=== PATIENT | male | born 1965 | race Caucasian/White ===

== ENCOUNTER 2022-06-18 02:43 | Observation (INO) | payer OTHER ==
[~2022-06-18] VITALS: Ht 190.5 cm; Wt 97.7 kg
[2022-06-18 04:10] LABS: BASO % 0.3 % (0.0-1.0); EOS % 0.1 % (0.0-3.0); HEMATOCRIT 36.9 % (42.0-52.0); HEMOGLOBIN 12.1 g/dl (13.5-17.5); LYMPH # 0.5 10^3/uL (1.5-5.0); LYMPH % 3.1 % (24.0-44.0); MEAN CORPUSCULAR HEMOGLOBIN 30.7 pg (27.0-33.0); MEAN CORPUSCULAR HGB CONC 32.8 g/dl (32.0-36.5); MEAN CORPUSCULAR VOLUME 93.7 fl (80.0-96.0); MONO # 1.5 10^3/uL (0.0-0.8); MONO % 9.5 % (2.0-8.0); NEUTROPHILS # 13.8 10^3/uL (1.5-8.5); NEUTROPHILS % 86.4 % (36.0-66.0); PLATELET COUNT, AUTOMATED 279 10^3/uL (150-450); RED BLOOD COUNT 3.94 10^6/uL (4.30-6.10); WHITE BLOOD COUNT 15.9 10^3/uL (4.0-10.0)
[2022-06-18 04:17] LABS: BLOOD UREA NITROGEN 24 MG/DL (9-23); CALCIUM LEVEL 7.9 MG/DL (8.5-10.1); CARBON DIOXIDE LEVEL 22 MMOL/L (20-31); CHLORIDE LEVEL 107 MMOL/L (98-107); CREATININE FOR GFR 1.05 MG/DL (0.70-1.30); GLOMERULAR FILTRATION RATE > 60.0 (>56); GLUCOSE, FASTING 114 MG/DL (60-100); POTASSIUM SERUM 4.4 MMOL/L (3.5-5.1); SODIUM LEVEL 141 MMOL/L (136-145)
[2022-06-18 04:19] LABS: CK-MB VALUE MASS 1.2 NG/ML (<3.6)
[2022-06-18 04:20] LABS: INR 1.07; PROTHROMBIN TIME 14.1 SECONDS (12.5-14.5)
[2022-06-18 04:21] LABS: PARTIAL THROMBOPLASTIN TIME 24.1 SECONDS (24.8-34.2)
[2022-06-18 04:22] LABS: CPK CREATINE PHOSPHOKINASE 351 U/L (46-171); MB/CK RELATIVE INDEX 0.34 (< OR =4)
[2022-06-18] MEDS ORDERED: ISOVUE-370 76% 100ML VIAL As Ordered ONE (05:11)
[2022-06-18] MEDS ORDERED: BOOSTRIX/ADACEL VACCINE (DIPHTH/PERTUSS/ACELL/TETANUS) 0.5ML SYR IM ONE (06:40)
[2022-06-18] MEDS ORDERED: UNRESOLVED CLARIFICATION ENTRY XX STA (06:42)
[2022-06-18 07:16] LABS: CK-MB VALUE MASS 1.2 NG/ML (<3.6)
[2022-06-18 07:20] LABS: THYROID STIMULATING HORMONE 0.301 uIU/ML (0.55-4.78)
[2022-06-18 07:21] LABS: FREE T4 1.25 NG/DL (0.89-1.76)
[2022-06-18 07:24] LABS: MB/CK RELATIVE INDEX 0.26 (< OR =4)
[2022-06-18] MEDS ORDERED: PERI0.126 PO (07:35)
[2022-06-18] MEDS ORDERED: METO1TAB7 PO (07:35)
[2022-06-18] MEDS ORDERED: ASPI81CH33 PO (07:35)
[2022-06-18] MEDS ORDERED: PRAV40TA2 PO (07:35)
[2022-06-18] MEDS ORDERED: OMEP10CASR PO (07:35)
[2022-06-18] MEDS ORDERED: IBUP-1022 PO (07:35)
[2022-06-18] MEDS ORDERED: DOXY100C3 PO (07:35)
[2022-06-18] MEDS ORDERED: FLOM0.4C39 PO (07:35)
[2022-06-18 08:19] LABS: CK-MB VALUE MASS 3.6 NG/ML (<3.6)
[2022-06-18 08:21] LABS: MB/CK RELATIVE INDEX 0.53 (< OR =4)
[2022-06-18] MEDS ORDERED: MORPHINE 4 MG/ML 1ML VIAL IV ONE (09:10)
[2022-06-18] MEDS ORDERED: ASPI81TA26 PO (10:31)
[2022-06-18] MEDS ORDERED: OMEP-341 PO (10:31)
[2022-06-18] MEDS ORDERED: HOME MED LIST COMPLETE! XX SCH (10:35)
[2022-06-18] MEDS ORDERED: KETOROLAC 30 MG/ML 1ML VIAL IV ONE (10:50)
[2022-06-18] MEDS ORDERED: PERCOCET 5MG/325MG TAB PO PRN (10:50)
[2022-06-18] MEDS ORDERED: ALBUTEROL SULFATE 2.5MG/0.5ML INH NEB SOLN NEB PRN (11:25)
[2022-06-18] MEDS: IPRATROPIUM 0.5MG/ALBUTEROL 2.5MG INH SOL UD 3ML (DUONEB) NEB SCH ×3 (12:00→20:03)
[2022-06-18] MEDS: ENOXAPARIN 40MG/0.4ML SYRINGE (J1650 PER 10MG) SC SCH (13:21)
[2022-06-18 14:39] VITALS: BP 125/70
[2022-06-18 16:44] VITALS: BP_SYST 102; BP_SYST 112; BP_SYST 130; BP_DIAS 60; BP_DIAS 64; BP_DIAS 83
[2022-06-18] MEDS: PERCOCET 5MG/325MG TAB PO PRN (18:06)
[2022-06-18 21:10] VITALS: BP 110/68
[2022-06-18] MEDS: TAMSULOSIN 0.4 MG CAP PO SCH (23:06)
[2022-06-18] MEDS: OMEPRAZOLE SUSPENSION 20MG 10ML ORAL SYRINGE PO SCH (23:06)
[2022-06-18] MEDS: PRAVASTATIN 20 MG TAB PO SCH (23:07)
[2022-06-18] MEDS: DOXYCYCLINE HYCLATE 100MG TABLET PO SCH (23:07)
[2022-06-18] MEDS: ACETAMINOPHEN TAB 650MG DOSE (2X325MG) PO PRN (23:08)
[2022-06-19 04:40] VITALS: BP 111/69
[2022-06-19 06:37] LABS: HEMATOCRIT 35.5 % (42.0-52.0); HEMOGLOBIN 11.4 g/dl (13.5-17.5); MEAN CORPUSCULAR HEMOGLOBIN 30.2 pg (27.0-33.0); MEAN CORPUSCULAR HGB CONC 32.1 g/dl (32.0-36.5); MEAN CORPUSCULAR VOLUME 94.2 fl (80.0-96.0); PLATELET COUNT, AUTOMATED 241 10^3/uL (150-450); RED BLOOD COUNT 3.77 10^6/uL (4.30-6.10); WHITE BLOOD COUNT 7.3 10^3/uL (4.0-10.0)
[2022-06-19 06:56] LABS: ALBUMIN 3.4 G/DL (3.2-5.2); ALKALINE PHOSPHATASE 62 U/L (46-116); ALT/SGPT 32 U/L (7.0-40); AST/SGOT 35 U/L (<34); BLOOD UREA NITROGEN 20 MG/DL (9-23); CALCIUM LEVEL 8.7 MG/DL (8.5-10.1); CARBON DIOXIDE LEVEL 29 MMOL/L (20-31); CHLORIDE LEVEL 101 MMOL/L (98-107); CREATININE FOR GFR 1.07 MG/DL (0.70-1.30); GLOMERULAR FILTRATION RATE > 60.0 (>56); GLUCOSE, FASTING 109 MG/DL (60-100); POTASSIUM SERUM 4.1 MMOL/L (3.5-5.1); SODIUM LEVEL 136 MMOL/L (136-145); TOTAL PROTEIN 6.1 G/DL (5.7-8.2)
[2022-06-19] MEDS: IPRATROPIUM 0.5MG/ALBUTEROL 2.5MG INH SOL UD 3ML (DUONEB) NEB SCH ×4 (07:23→19:32)
[2022-06-19] MEDS ORDERED: methylPREDNISolone 125MG 2ML VIAL IV ONE (07:50)
[2022-06-19] MEDS: ENOXAPARIN 40MG/0.4ML SYRINGE (J1650 PER 10MG) SC SCH (08:21)
[2022-06-19] MEDS: DOXYCYCLINE HYCLATE 100MG TABLET PO SCH ×2 (08:21→22:09)
[2022-06-19] MEDS: ASPIRIN 81MG ENTERIC TABLET PO SCH (08:21)
[2022-06-19] MEDS: OMEPRAZOLE SUSPENSION 20MG 10ML ORAL SYRINGE PO SCH ×2 (08:21→22:09)
[2022-06-19] MEDS: PERCOCET 5MG/325MG TAB PO PRN (08:23)
[2022-06-19] MEDS: METOPROLOL SUCC *XL* 25MG TAB (TopROL *XL*) PO SCH (08:23)
[2022-06-19 14:00] VITALS: BP_SYST 108; BP_SYST 114; BP_SYST 116; BP_DIAS 60; BP_DIAS 70; BP_DIAS 83
[2022-06-19 20:35] VITALS: BP 120/68
[2022-06-19] MEDS ORDERED: ONDANSETRON 4MG ORAL DISINTEGRATING TAB PO PRN (22:00)
[2022-06-19] MEDS ORDERED: ONDANSETRON 4MG TAB PO PRN (22:00)
[2022-06-19] MEDS: PRAVASTATIN 20 MG TAB PO SCH (22:09)
[2022-06-19] MEDS: TAMSULOSIN 0.4 MG CAP PO SCH (22:09)
[2022-06-20] MEDS: IPRATROPIUM 0.02% SOLN 0.5MG 2.5ML NEB INH SCH ×2 (01:34→07:31)
[2022-06-20] MEDS: LEVALBUTEROL 1.25MG 0.5ML CONCENTRATE NEB INH SCH ×2 (01:34→07:31)
[2022-06-20 06:00] VITALS: BP 118/68
[2022-06-20 06:02] LABS: HEMATOCRIT 31.3 % (42.0-52.0); HEMOGLOBIN 10.3 g/dl (13.5-17.5); MEAN CORPUSCULAR HEMOGLOBIN 30.4 pg (27.0-33.0); MEAN CORPUSCULAR HGB CONC 32.9 g/dl (32.0-36.5); MEAN CORPUSCULAR VOLUME 92.3 fl (80.0-96.0); PLATELET COUNT, AUTOMATED 235 10^3/uL (150-450); RED BLOOD COUNT 3.39 10^6/uL (4.30-6.10); WHITE BLOOD COUNT 16.9 10^3/uL (4.0-10.0)
[2022-06-20 06:40] LABS: ALKALINE PHOSPHATASE 55 U/L (46-116); ALT/SGPT 28 U/L (7.0-40); AST/SGOT 26 U/L (<34); BILIRUBIN,TOTAL 0.5 MG/DL (0.3-1.2); BLOOD UREA NITROGEN 15 MG/DL (9-23); CALCIUM LEVEL 8.7 MG/DL (8.5-10.1); CARBON DIOXIDE LEVEL 24 MMOL/L (20-31); CHLORIDE LEVEL 106 MMOL/L (98-107); CREATININE FOR GFR 0.88 MG/DL (0.70-1.30); GLOMERULAR FILTRATION RATE > 60.0 (>56); GLUCOSE, FASTING 123 MG/DL (60-100); POTASSIUM SERUM 4.5 MMOL/L (3.5-5.1); SODIUM LEVEL 142 MMOL/L (136-145); TOTAL PROTEIN 5.5 G/DL (5.7-8.2)
[2022-06-20] MEDS: ACETAMINOPHEN TAB 650MG DOSE (2X325MG) PO PRN (07:09)
[2022-06-20] MEDS: OMEPRAZOLE SUSPENSION 20MG 10ML ORAL SYRINGE PO SCH (08:59)
[2022-06-20] MEDS ORDERED: AUGMENTIN 875 MG TAB PO SCH (09:00)
[2022-06-20] MEDS: DOXYCYCLINE HYCLATE 100MG TABLET PO SCH (09:00)
[2022-06-20] MEDS: ASPIRIN 81MG ENTERIC TABLET PO SCH (09:00)
[2022-06-20] MEDS: ENOXAPARIN 40MG/0.4ML SYRINGE (J1650 PER 10MG) SC SCH (09:00)
[2022-06-20 09:02] VITALS: BP 137/77
[2022-06-20] MEDS: METOPROLOL SUCC *XL* 25MG TAB (TopROL *XL*) PO SCH (09:02)
[2022-06-20 12:11] LABS: HEMATOCRIT 31.6 % (42.0-52.0); HEMOGLOBIN 10.2 g/dl (13.5-17.5); MEAN CORPUSCULAR HEMOGLOBIN 30.2 pg (27.0-33.0); MEAN CORPUSCULAR HGB CONC 32.3 g/dl (32.0-36.5); MEAN CORPUSCULAR VOLUME 93.5 fl (80.0-96.0); PLATELET COUNT, AUTOMATED 241 10^3/uL (150-450); RED BLOOD COUNT 3.38 10^6/uL (4.30-6.10); WHITE BLOOD COUNT 17.5 10^3/uL (4.0-10.0)
[2022-06-20] MEDS ORDERED: DOXY100T PO (12:28)
[2022-06-20] MEDS ORDERED: ACET1TAB55 PO (12:28)
[2022-06-20] MEDS ORDERED: OXYC-517 PO (12:28)
[2022-06-20] MEDS ORDERED: ALB2.5NEB NEB (12:28)
[2022-06-20] MEDS ORDERED: IBUP-1114 PO (12:28)
[2022-06-20] MEDS ORDERED: AMOX875T2 PO (12:28)
== END 2022-06-20 14:15 | disposition home or self-care (01) ==
LOC: M ED 02:43 → M ED INP 10:48 → M MSPAV 14:33
PROVIDERS: ADMIT Internal Medicine; ATTEND Student in an Organized Health Care Education/Training Program
DX: R07.1 Chest pain on breathing (principal); R09.02 Hypoxemia; J98.11 Atelectasis; R55 Syncope and collapse; T14.8XXA Other injury of unspecified body region, initial encounter; Y04.0XXA Assault by unarmed brawl or fight, initial encounter; Y92.148 Other place in prison as the place of occurrence of the external cause; J44.9 Chronic obstructive pulmonary disease, unspecified; M79.9 Soft tissue disorder, unspecified; R91.8 Other nonspecific abnormal finding of lung field; I49.01 Ventricular fibrillation; I48.91 Unspecified atrial fibrillation; E78.5 Hyperlipidemia, unspecified; N40.0 Benign prostatic hyperplasia without lower urinary tract symptoms; K21.9 Gastro-esophageal reflux disease without esophagitis; I50.30 Unspecified diastolic (congestive) heart failure; I25.2 Old myocardial infarction; K59.00 Constipation, unspecified; Z87.891 Personal history of nicotine dependence; Z79.899 Other long term (current) drug therapy; Z79.82 Long term (current) use of aspirin; Z79.2 Long term (current) use of antibiotics
CPT/HCPCS: 36415; 70450; 70486; 71045; 71275; 72125; 72128; 72131; 73000; 73030; 73130; 73552; 73564; 73590; 74177; 80048; 80053; 82550; 82553; 84439; 84443; 84484; 85025; 85027; 85610; 85730; 87486; 87581; 87633; 87798; 90471; 90715; 93005; 93041; 93306; 93971; 94640; 94760; 96372; 96374; 96375; 97161; 97530; 99285; J1650; J1885; J2930